=== PATIENT | female | born 1955 | race Hispanic/Latino ===

== ENCOUNTER → 2022-01-16 | Outpatient (CLI) | payer MEDICARE ==
[~2022-01-16] MED LIST: GADOTERATE MEGLUMINE 10 MMOL/20 ML VIAL IV ONE
== END | disposition home or self-care (01) ==
LOC: RAH 07:31
PROVIDERS: ATTEND Internal Medicine
DX: M47.816 Spondylosis without myelopathy or radiculopathy, lumbar region (principal); M51.26 Other intervertebral disc displacement, lumbar region; M48.061 Spinal stenosis, lumbar region without neurogenic claudication; M47.12 Other spondylosis with myelopathy, cervical region
CPT/HCPCS: 72158; A9575; 36415; 80053